=== PATIENT | male | born 1960 | race Caucasian/White ===

== ENCOUNTER 2023-01-09 21:45 | Emergency (ER) | payer OTHER ==
[2023-01-09 21:55] VITALS: BP 141/83; PULSE 82; RESP 19; TEMP 98.7; BMI 35.7
[2023-01-10 00:47] LABS: BASO % 0.7 % (0-2.0); EOS % 3.8 % (0-4.5); HEMATOCRIT 44.7 % (35.4-49); HEMOGLOBIN 15.2 GM/dL (11.7-16.9); LYMPH % 31.2 % (8-40); MCH 29.7 pg (25.7-33.7); MCHC 33.9 g/dl (32.0-35.9); MEAN CELL VOLUME 87.5 fl (80-96); MEAN PLT VOLUME 10.2 fl (7.5-11.1); MONO % 7.7 % (3.8-10.2); NEUT % 56.6 % (42.8-82.8); PLATELET COUNT 163 10^3/uL (134-434); RBC 5.11 M/mm3 (4.00-5.60); RDW 13.8 % (11.9-15.9); WHITE BLOOD COUNT 5.9 K/mm3 (4.0-10.0)
[2023-01-10 01:17] LABS: INR 1.06 (0.83-1.09); PROTHROMBIN TIME (PATIENT) 12.3 SEC (9.7-13.0)
[2023-01-10 02:04] LABS: CHLORIDE 104 mmol/L (98-107); POTASSIUM 4.2 mmol/L (3.5-5.1); SODIUM 140 mmol/L (136-145)
[2023-01-10 02:06] LABS: ALBUMIN 3.7 g/dl (3.4-5.0); ANION GAP 5 mmol/L (4-13); CALCIUM 9.3 mg/dL (8.5-10.1); CO2 31 mmol/L (21-32); GLUCOSE,RANDOM 266 mg/dL (74-106); MAGNESIUM 2.1 mg/dL (1.8-2.4)
[2023-01-10 02:09] LABS: CREATININE 0.9 mg/dL (0.55-1.3); SGPT/ALT 28 U/L (13-61)
[2023-01-10 02:10] LABS: SGOT/AST 13 U/L (15-37)
[2023-01-10 02:11] LABS: BILIRUBIN,TOTAL 0.4 mg/dL (0.2-1); TOT PROT 7.1 g/dl (6.4-8.2)
[2023-01-10 02:12] LABS: ALK PHOS 96 U/L (45-117)
[2023-01-10 03:01] LABS: EPI CELLS 8 /uL (0-25.1); HYALINE CASTS 0 /uL (0-3.1); PH,URINE 5.5 (5.0-8.0); URINE APPEARANCE CLEAR; URINE BACTERIA 1 /uL (0-1359); URINE BILIRUBIN NEGATIVE (NEGATIVE); URINE COLOR YELLOW; URINE GLUCOSE (UA) 3+ (NEGATIVE); URINE KETONE TRACE (NEGATIVE); URINE LEUK ESTERASE NEGATIVE (NEGATIVE); URINE NITRITE NEGATIVE (NEGATIVE); URINE PROTEIN 1+ (NEGATIVE); URINE RBC 8 /uL (0-23.9); URINE WBC 30 /uL (0-25.8)
[2023-01-10 03:05] LABS: COCAINE, UR NEGATIVE (NEGATIVE); METHADONE, UR NEGATIVE (NEGATIVE); OPIATES, URI NEGATIVE (NEGATIVE); URINE AMPHETAMINES NEGATIVE (NEGATIVE)
[2023-01-10 03:19] LABS: PHENCYCLIDINE,URINE POSITIVE (NEGATIVE); URINE BARBITURATES NEGATIVE (NEGATIVE); URINE BENZODIAZEPINES NEGATIVE (NEGATIVE)
== END 2023-01-10 03:55 | disposition home or self-care (01) ==
LOC: JER 21:45
DX: R41.82 Altered mental status, unspecified (principal); R62.7 Adult failure to thrive; F16.929 Hallucinogen use, unspecified with intoxication, unspecified
CPT/HCPCS: 36415; 70450-TC; 71046-TC-FY; 80053; 80307; 81003; 83735; 84484; 85025; 85610; 85730; 87086; 93005; 93010; 99285-25